=== PATIENT | female | born 1935 | race Caucasian/White ===

== ENCOUNTER 2023-07-31 08:52 | Inpatient (IN) | payer MEDICARE, OTHER ==
[~2023-07-31] VITALS: Ht 165.1 cm; Wt 70.9 kg
[~2023-07-31 08:52] MED LIST: AMOX500C2 PO; BENZ200C53 PO
[2023-07-31] MEDS ORDERED: LIDOCAINE VISCOUS 2% UD 15 ML UDC ONE (09:12)
[2023-07-31] MEDS: LIDOCAINE VISCOUS 2% UD 15 ML UDC MM ONE (09:15)
[2023-07-31 09:58] LABS: BASOPHILS % (AUTO) 1.2 % (0.0-2.0); EOSINOPHILS # (AUTO) 0.1 K/uL (0.0-0.7); MONOCYTES # (AUTO) 0.7 K/uL (0.1-1.30); NEUTROPHILS # (AUTO) 2.6 K/uL (1.8-8.9); WHITE BLOOD COUNT (AUTO) 4.2 K/uL (4.3-11.0)
[2023-07-31 10:02] LABS: EOSINOPHILS % (AUTO) 2.4 % (0.0-6.0); HEMATOCRIT 40 % (33-45); HEMOGLOBIN 13.5 g/dL (11.5-14.8); LYMPHOCYTES # (AUTO) 0.8 K/uL (0.8-4.8); LYMPHOCYTES % (AUTO) 19.7 % (20.0-44.0); MEAN CORPUSCULAR HEMOGLOBIN 28 PG (26.0-33.0); MEAN CORPUSCULAR HGB CONC 34 g/dl (31.0-36.0); MEAN CORPUSCULAR VOLUME 84 fL (82-100); MONOCYTES % (AUTO) 15.7 % (2.0-12.0); PLATELET COUNT (AUTO) 168 K/uL (150-450); RED BLOOD CELL COUNT(AUTO) 4.79 MIL/uL (4.0-5.2); RED CELL DISTRIBUTION WIDTH 16.7 % (11.5-15.0)
[2023-07-31 10:05] LABS: CALCIUM, SERUM 8.8 mg/dL (8.5-10.1); CARBON DIOXIDE 24 mmol/L (21-32); CHLORIDE 105 mmol/L (98-107); CREATININE 0.7 mg/dL (0.6-1.3); GLUCOSE 132 mg/dL (74-106); POTASSIUM 3.6 mmol/L (3.5-5.1); SODIUM SERUM 136 mmol/L (136-145); UREA NITROGEN, BLOOD 17 mg/dL (7-18)
[2023-07-31 10:07] LABS: PARTIAL THROMBOPLASTIN TIME 29.5 SEC (24.3-34.3); PROTHROMBIN TIME 10.3 SECS (9.2-11.1)
[2023-07-31 10:12] LABS: ALANINE AMINOTRANSFERASE 28 U/L (12-78); ALBUMIN 3.2 g/dL (3.4-5.0); ASPARTATE AMINOTRANSFERASE 27 U/L (15-37); BILIRUBIN,DIRECT 0.1 mg/dL (0.0-0.2); BILIRUBIN,TOTAL 0.6 mg/dL (0.2-1.0); TOTAL PROTEIN, SERUM 7.4 g/dL (6.4-8.2)
[2023-07-31 10:32] LABS: ALKALINE PHOSPHATASE 68 U/L (46-116)
[2023-07-31] MEDS ORDERED: CEPHALEXIN MONOHYDRATE 500 MG CAPSULE PO ONE (11:33)
[2023-07-31] MEDS: CEPHALEXIN MONOHYDRATE 500 MG CAPSULE PO ONE (11:39)
[2023-07-31 12:03] LABS: ANISOCYTOSIS 1+; BASOPHILS % (MANUAL) 0 % (0.0-2.0); EOSINOPHILS % (MANUAL) 4 % (0-4); LYMPHOCYTES % (MANUAL) 17 % (16-48); MONOCYTES % (MANUAL) 14 % (0-11.0); NEUTROPHILS % (MANUAL) 65 (42-76); PLATELET ESTIMATE ADEQUATE
[2023-07-31] MEDS ORDERED: CLONIDINE HCL 0.1 MG TABLET ONE (12:17)
[2023-07-31] MEDS: CLONIDINE HCL 0.1 MG TABLET PO ONE (12:19)
[2023-07-31] MEDS ORDERED: ONDANSETRON HCL/PF 4 MG/2 ML VIAL IVP PRN (15:00)
[2023-07-31] MEDS ORDERED: MAGNESIUM HYDROXIDE 30 ML UDC PO PRN (15:00)
[2023-07-31] MEDS ORDERED: MAG HYDROX/AL HYDROX/SIMETH 30 ML UDC PO PRN (15:00)
[2023-07-31] MEDS ORDERED: Z GUARD REMEDY 4 OZ OINT TP PRN (15:00)
[2023-07-31 16:09] VITALS: BP 152/94; TEMP 98.1; O2SAT 95
[2023-07-31] MEDS: IV NS 0.9% 1,000 ML IV PRN (16:37)
[2023-07-31] MEDS ORDERED: ATOR20TA PO (17:04)
[2023-07-31] MEDS ORDERED: FAMO-108 PO (17:04)
[2023-07-31] MEDS ORDERED: BRIM5DRO2 EACHEYE (17:04)
[2023-07-31] MEDS ORDERED: LOSA100T31 PO (17:04)
[2023-07-31 20:00] VITALS: BP 142/86; TEMP 97.7; O2SAT 97
[2023-07-31] MEDS: CEPHALEXIN MONOHYDRATE 500 MG CAPSULE PO SCH (21:06)
[2023-08-01] VITALS: BP 164/82; TEMP 98.4; O2SAT 96
[2023-08-01 00:17] VITALS: BP 164/82; TEMP 98.4; O2SAT 96
[2023-08-01 04:00] VITALS: BP 159/93; TEMP 98.4; O2SAT 96
[2023-08-01 07:08] LABS: CALCIUM, SERUM 8.1 mg/dL (8.5-10.1); CREATININE 0.6 mg/dL (0.6-1.3); MAGNESIUM 2.1 mg/dL (1.8-2.4); PHOSPHORUS 3.1 mg/dL (2.5-4.9); POTASSIUM 3.9 mmol/L (3.5-5.1)
[2023-08-01] MEDS: ACETAMINOPHEN 325 MG TABLET PO PRN (07:37)
[2023-08-01 07:52] LABS: BASOPHILS % (AUTO) 0.9 % (0.0-2.0); EOSINOPHILS # (AUTO) 0.1 K/uL (0.0-0.7); EOSINOPHILS % (AUTO) 1.5 % (0.0-6.0); HEMATOCRIT 39 % (33-45); HEMOGLOBIN 12.9 g/dL (11.5-14.8); LYMPHOCYTES # (AUTO) 1.1 K/uL (0.8-4.8); LYMPHOCYTES % (AUTO) 21.5 % (20.0-44.0); MEAN CORPUSCULAR HEMOGLOBIN 29 PG (26.0-33.0); MEAN CORPUSCULAR HGB CONC 33 g/dl (31.0-36.0); MEAN CORPUSCULAR VOLUME 86 fL (82-100); MONOCYTES # (AUTO) 0.8 K/uL (0.1-1.30); MONOCYTES % (AUTO) 15.3 % (2.0-12.0); NEUTROPHILS # (AUTO) 3.1 K/uL (1.8-8.9); NEUTROPHILS % (AUTO) 60.8 % (43.0-81.0); PLATELET COUNT (AUTO) 162 K/uL (150-450); RED BLOOD CELL COUNT(AUTO) 4.53 MIL/uL (4.0-5.2); RED CELL DISTRIBUTION WIDTH 16.9 % (11.5-15.0); WHITE BLOOD COUNT (AUTO) 5.1 K/uL (4.3-11.0)
[2023-08-01 08:00] VITALS: BP 150/84; TEMP 98.4; O2SAT 97
== END 2023-08-01 15:15 | disposition home or self-care (01) | DRG 281 ==
LOC: ER 08:59 → MED 14:11 → TELE 20:59
PROVIDERS: ADMIT Nurse Practitioner Acute Care; ATTEND Nurse Practitioner Acute Care
PROC: 2Y41X5Z Packing of Nasal Region using Packing Material (ICD-10-PCS; principal; 2023-07-31)
DX: I16.0 Hypertensive urgency (principal); D68.69 Other thrombophilia; I21.A1 Myocardial infarction type 2; I50.32 Chronic diastolic (congestive) heart failure; R04.0 Epistaxis; E11.9 Type 2 diabetes mellitus without complications; E66.01 Morbid (severe) obesity due to excess calories; E78.5 Hyperlipidemia, unspecified; I11.0 Hypertensive heart disease with heart failure; K08.89 Other specified disorders of teeth and supporting structures; R51.9 Headache, unspecified; Z91.199 Patient's noncompliance with other medical treatment and regimen due to unspecified reason; Z68.26 Body mass index [BMI] 26.0-26.9, adult
CPT/HCPCS: 36415; 70450-TC; 71045-TC; 80048-TC; 80061-TC; 80076-TC; 83735-TC; 84100-TC; 84484-TC; 85025-TC; 85730-TC; 93307-TC; A4223; G0378; J7030

== ENCOUNTER 2023-11-07 00:23 | Emergency (ER) | payer MEDICARE, OTHER ==
[~2023-11-07] VITALS: Ht 165.1 cm; Wt 70.3 kg
[~2023-11-07 00:23] MED LIST changes: +ATOR20TA PO; +BRIM5DRO2 EACHEYE; +FAMO-108 PO; +LOSA100T31 PO
[2023-11-07] MEDS ORDERED: SUMATRIPTAN SUCCINATE 6 MG/0.5 ML VIAL SQ ONE (00:46)
[2023-11-07] MEDS ORDERED: MECLIZINE HCL 25 MG TABLET ONE (00:46)
[2023-11-07] MEDS ORDERED: diphenhydrAMINE HCL 50 MG/ML VIAL ONE (00:46)
[2023-11-07] MEDS ORDERED: METOCLOPRAMIDE HCL 10 MG/2 ML VIAL ONE (00:47)
[2023-11-07 00:48] LABS: BASOPHILS % (AUTO) 0.9 % (0.0-2.0); EOSINOPHILS # (AUTO) 0.2 K/uL (0.0-0.7); EOSINOPHILS % (AUTO) 3.5 % (0.0-6.0); HEMATOCRIT 38 % (33-45); HEMOGLOBIN 12.5 g/dL (11.5-14.8); LYMPHOCYTES # (AUTO) 0.9 K/uL (0.8-4.8); LYMPHOCYTES % (AUTO) 18.5 % (20.0-44.0); MEAN CORPUSCULAR HEMOGLOBIN 28 PG (26.0-33.0); MEAN CORPUSCULAR HGB CONC 33 g/dl (31.0-36.0); MEAN CORPUSCULAR VOLUME 84 fL (82-100); MONOCYTES # (AUTO) 0.8 K/uL (0.1-1.30); MONOCYTES % (AUTO) 16.9 % (2.0-12.0); NEUTROPHILS % (AUTO) 60.2 % (43.0-81.0); PLATELET COUNT (AUTO) 154 K/uL (150-450); RED BLOOD CELL COUNT(AUTO) 4.47 MIL/uL (4.0-5.2); RED CELL DISTRIBUTION WIDTH 16.9 % (11.5-15.0); WHITE BLOOD COUNT (AUTO) 4.9 K/uL (4.3-11.0)
[2023-11-07] MEDS: IV NS 0.9% 1,000 ML BAG IV ONE (00:53)
[2023-11-07] MEDS: diphenhydrAMINE HCL 50 MG/ML VIAL IV ONE (00:55)
[2023-11-07] MEDS ORDERED: MECLIZINE HCL 12.5 MG TABLET PO ONE (01:00)
[2023-11-07 01:06] LABS: CALCIUM, SERUM 8.7 mg/dL (8.5-10.1); CARBON DIOXIDE 24 mmol/L (21-32); CHLORIDE 102 mmol/L (98-107); CREATININE 0.9 mg/dL (0.6-1.3); GLUCOSE 166 mg/dL (74-106); POTASSIUM 3.5 mmol/L (3.5-5.1); SODIUM SERUM 135 mmol/L (136-145); UREA NITROGEN, BLOOD 20 mg/dL (7-18)
[2023-11-07] MEDS: METOCLOPRAMIDE HCL 10 MG/2 ML VIAL IV ONE (01:09)
[2023-11-07] MEDS: SUMATRIPTAN SUCCINATE 6 MG/0.5 ML VIAL SQ ONE (01:10)
[2023-11-07] MEDS: LABETALOL HCL IV 100MG VIAL IV ONE (01:11)
[2023-11-07] MEDS ORDERED: LABETALOL HCL IV 100MG VIAL ONE (01:12)
[2023-11-07] MEDS ORDERED: SUMA50TA PO (01:42)
[2023-11-07] MEDS ORDERED: MECL-159 PO (01:42)
[2023-11-07 02:30] VITALS: BP 134/85; TEMP 98; O2SAT 99
== END 2023-11-07 02:44 | disposition home or self-care (01) ==
LOC: ER 00:24
DX: R42 Dizziness and giddiness (principal); R51.9 Headache, unspecified; I10 Essential (primary) hypertension; E11.9 Type 2 diabetes mellitus without complications
CPT/HCPCS: 99285; 96374; 70450; 96375; 71045; 96361; 93005; 85025; 80048; 36415; 84484; 96372; J8597; J1200; J3030; J3490; J2765; J7030

== ENCOUNTER 2023-12-17 13:00 | Emergency (ER) | payer MEDICARE, OTHER ==
[~2023-12-17] VITALS: Ht 152.4 cm; Wt 68.0 kg
[~2023-12-17 13:00] MED LIST changes: +MECL-159 PO; +SUMA50TA PO
[2023-12-17] MEDS ORDERED: ACETAMINOPHEN ES 500 MG TABLET ONE (13:30)
[2023-12-17] MEDS ORDERED: METOCLOPRAMIDE HCL 10 MG/2 ML VIAL ONE (13:30)
[2023-12-17] MEDS ORDERED: diphenhydrAMINE HCL 50 MG/ML VIAL ONE (13:30)
[2023-12-17] MEDS: ACETAMINOPHEN ES 500 MG TABLET PO ONE (13:34)
[2023-12-17] MEDS: IV NS 0.9% 1,000 ML BAG IV ONE (13:35)
[2023-12-17] MEDS: diphenhydrAMINE HCL 50 MG/ML VIAL IV ONE (13:35)
[2023-12-17] MEDS: METOCLOPRAMIDE HCL 10 MG/2 ML VIAL IV ONE (13:38)
[2023-12-17 14:08] LABS: BASOPHILS % (AUTO) 1.1 % (0.0-2.0); EOSINOPHILS # (AUTO) 0.2 K/uL (0.0-0.7); EOSINOPHILS % (AUTO) 4.4 % (0.0-6.0); HEMATOCRIT 38 % (33-45); HEMOGLOBIN 12.7 g/dL (11.5-14.8); LYMPHOCYTES % (AUTO) 24.7 % (20.0-44.0); MEAN CORPUSCULAR HEMOGLOBIN 28 PG (26.0-33.0); MEAN CORPUSCULAR HGB CONC 33 g/dl (31.0-36.0); MEAN CORPUSCULAR VOLUME 85 fL (82-100); MONOCYTES # (AUTO) 0.8 K/uL (0.1-1.30); MONOCYTES % (AUTO) 18.3 % (2.0-12.0); NEUTROPHILS # (AUTO) 2.2 K/uL (1.8-8.9); NEUTROPHILS % (AUTO) 51.5 % (43.0-81.0); PLATELET COUNT (AUTO) 146 K/uL (150-450); RED BLOOD CELL COUNT(AUTO) 4.53 MIL/uL (4.0-5.2); RED CELL DISTRIBUTION WIDTH 17.3 % (11.5-15.0); WHITE BLOOD COUNT (AUTO) 4.2 K/uL (4.3-11.0)
[2023-12-17 14:19] LABS: CALCIUM, SERUM 8.9 mg/dL (8.5-10.1); CARBON DIOXIDE 25 mmol/L (21-32); CHLORIDE 105 mmol/L (98-107); CREATININE 0.7 mg/dL (0.6-1.3); GLUCOSE 121 mg/dL (74-106); POTASSIUM 3.7 mmol/L (3.5-5.1); SODIUM SERUM 140 mmol/L (136-145); UREA NITROGEN, BLOOD 18 mg/dL (7-18)
[2023-12-17] MEDS ORDERED: NAPR-431 PO (15:45)
[2023-12-17 16:29] VITALS: BP 150/72; TEMP 98.7; O2SAT 100
== END 2023-12-17 16:30 | disposition home or self-care (01) ==
LOC: ER 13:04
DX: R51.9 Headache, unspecified (principal); E11.9 Type 2 diabetes mellitus without complications; E78.5 Hyperlipidemia, unspecified; I10 Essential (primary) hypertension; Z79.899 Other long term (current) drug therapy
CPT/HCPCS: 99285; 96374; 70450; 96361; 96375; 93005; 85025; 80048; 36415; J1200; J2765; J7030

== ENCOUNTER 2024-08-07 20:53 | Inpatient (IN) | payer MEDICARE, OTHER ==
[~2024-08-07] VITALS: Ht 162.6 cm; Wt 74.0 kg
[~2024-08-07 20:53] MED LIST changes: +NAPR-431 PO
[2024-08-07 21:15] LABS: EOSINOPHILS # (AUTO) 0.2 K/uL (0.0-0.7); EOSINOPHILS % (AUTO) 3.7 % (0.0-6.0); HEMATOCRIT 40 % (33-45); HEMOGLOBIN 12.8 g/dL (11.5-14.8); LYMPHOCYTES % (AUTO) 19.8 % (20.0-44.0); MEAN CORPUSCULAR HEMOGLOBIN 28 PG (26.0-33.0); MEAN CORPUSCULAR HGB CONC 32 g/dl (31.0-36.0); MEAN CORPUSCULAR VOLUME 85 fL (82-100); MONOCYTES # (AUTO) 0.8 K/uL (0.1-1.30); NEUTROPHILS % (AUTO) 59.5 % (43.0-81.0); PLATELET COUNT (AUTO) 160 K/uL (150-450); RED BLOOD CELL COUNT(AUTO) 4.67 MIL/uL (4.0-5.2); RED CELL DISTRIBUTION WIDTH 17.1 % (11.5-15.0); WHITE BLOOD COUNT (AUTO) 5.1 K/uL (4.3-11.0)
[2024-08-07] MEDS ORDERED: ONDANSETRON HCL/PF 4 MG/2 ML VIAL ONE (21:19)
[2024-08-07 21:22] LABS: CALCIUM, SERUM 8.8 mg/dL (8.5-10.1); CARBON DIOXIDE 24 mmol/L (21-32); CHLORIDE 109 mmol/L (98-107); CREATININE 0.9 mg/dL (0.6-1.3); GLUCOSE 136 mg/dL (74-106); POTASSIUM 3.7 mmol/L (3.5-5.1); SODIUM SERUM 141 mmol/L (136-145); UREA NITROGEN, BLOOD 22 mg/dL (7-18)
[2024-08-07 21:28] LABS: ALANINE AMINOTRANSFERASE 22 U/L (12-78); ALBUMIN 3.3 g/dL (3.4-5.0); ALKALINE PHOSPHATASE 75 U/L (46-116); ASPARTATE AMINOTRANSFERASE 20 U/L (15-37); BILIRUBIN,DIRECT 0.1 mg/dL (0.0-0.2); BILIRUBIN,TOTAL 0.4 mg/dL (0.2-1.0); TOTAL PROTEIN, SERUM 7.3 g/dL (6.4-8.2)
[2024-08-07] MEDS: IV NS 0.9% 1,000 ML BAG IV ONE (21:33)
[2024-08-07] MEDS: ONDANSETRON HCL/PF 4 MG/2 ML VIAL IVP ONE (21:34)
[2024-08-07 21:44] LABS: BASOPHILS % (MANUAL) 0 % (0.0-2.0); EOSINOPHILS % (MANUAL) 4 % (0-4); LYMPHOCYTES % (MANUAL) 22 % (16-48); MONOCYTES % (MANUAL) 11 % (0-11.0); NEUTROPHILS % (MANUAL) 63 (42-76); PLATELET ESTIMATE ADEQUATE
[2024-08-07] MEDS: FUROSEMIDE 40 MG/4 ML VIAL IV ONE (21:48)
[2024-08-07 23:03] LABS: COLOR,URINE STRAW (YELLOW)
[2024-08-07 23:04] LABS: APPEARANCE,URINE CLEAR (CLEAR); BILIRUBIN,URINE NEGATIVE (NEGATIVE); BLOOD, URINE NEGATIVE Ery/uL (NEGATIVE); KETONES,URINE NEGATIVE (NEGATIVE); LEUKOCYTE ESTERASE ,URINE NEGATIVE (NEGATIVE); NITRITE, URINE NEGATIVE (NEGATIVE); PH,URINE 6.5 (5.0-8.0); PROTEIN,URINE NEGATIVE (NEGATIVE); UGLUCOSE NEGATIVE (NEGATIVE); UROBILINOGEN,URINE 0.2 EU/dL (0.2)
[2024-08-07] MEDS ORDERED: TRAM50TA2 PO (23:18)
[2024-08-07] MEDS ORDERED: BRIM5DRO11 EACHEYE (23:18)
[2024-08-07] MEDS ORDERED: TRAV5DRO11 EACHEYE (23:18)
[2024-08-07] MEDS ORDERED: LORA10TA7 PO (23:18)
[2024-08-07] MEDS ORDERED: METO25TA6 PO (23:18)
[2024-08-07] MEDS ORDERED: KETOROLAC TROMETHAMINE 15 MG/ML VIAL ONE (23:25)
[2024-08-07] MEDS ORDERED: ACETAMINOPHEN 325 MG TABLET ONE (23:26)
[2024-08-07] MEDS ORDERED: MECLIZINE HCL 25 MG TABLET ONE (23:26)
[2024-08-07] MEDS: KETOROLAC TROMETHAMINE 15 MG/ML VIAL IV ONE (23:31)
[2024-08-07] MEDS: MECLIZINE HCL 25 MG TABLET PO ONE (23:32)
[2024-08-07] MEDS: ACETAMINOPHEN 325 MG TABLET PO ONE (23:32)
[2024-08-08] MEDS ORDERED: ONDANSETRON HCL/PF 4 MG/2 ML VIAL IVP PRN
[2024-08-08] MEDS ORDERED: MECLIZINE HCL 25 MG TABLET PO SCH
[2024-08-08] MEDS ORDERED: Z GUARD REMEDY 4 OZ OINT TP PRN
[2024-08-08] MEDS ORDERED: MAG HYDROX/AL HYDROX/SIMETH 30 ML UDC PO PRN
[2024-08-08] MEDS ORDERED: MAGNESIUM HYDROXIDE 30 ML UDC PO PRN
[2024-08-08 00:11] VITALS: BP 151/84; TEMP 97.9; O2SAT 95
[2024-08-08 04:00] VITALS: BP 148/83; TEMP 97.3; O2SAT 96
[2024-08-08 06:53] LABS: BASOPHILS % (AUTO) 0.9 % (0.0-2.0); EOSINOPHILS # (AUTO) 0.2 K/uL (0.0-0.7); EOSINOPHILS % (AUTO) 5.6 % (0.0-6.0); HEMATOCRIT 38 % (33-45); HEMOGLOBIN 12.4 g/dL (11.5-14.8); LYMPHOCYTES % (AUTO) 26.4 % (20.0-44.0); MEAN CORPUSCULAR HEMOGLOBIN 28 PG (26.0-33.0); MEAN CORPUSCULAR HGB CONC 33 g/dl (31.0-36.0); MEAN CORPUSCULAR VOLUME 85 fL (82-100); MONOCYTES # (AUTO) 0.7 K/uL (0.1-1.30); MONOCYTES % (AUTO) 17.5 % (2.0-12.0); NEUTROPHILS # (AUTO) 1.9 K/uL (1.8-8.9); NEUTROPHILS % (AUTO) 49.6 % (43.0-81.0); PLATELET COUNT (AUTO) 156 K/uL (150-450); RED BLOOD CELL COUNT(AUTO) 4.47 MIL/uL (4.0-5.2); RED CELL DISTRIBUTION WIDTH 16.6 % (11.5-15.0); WHITE BLOOD COUNT (AUTO) 3.9 K/uL (4.3-11.0)
[2024-08-08 07:10] LABS: CALCIUM, SERUM 8.6 mg/dL (8.5-10.1); CREATININE 0.9 mg/dL (0.6-1.3); MAGNESIUM 2.3 mg/dL (1.8-2.4); PHOSPHORUS 4.4 mg/dL (2.5-4.9); POTASSIUM 3.8 mmol/L (3.5-5.1)
[2024-08-08 07:26] LABS: THYROID STIMULATING HORMONE 1.9 uIU/mL (0.358-3.74)
[2024-08-08 07:30] VITALS: BP 158/96; TEMP 98.1; O2SAT 94
[2024-08-08] MEDS: PANTOPRAZOLE 40 MG TABLET.DR PO SCH (08:26)
[2024-08-08] MEDS: FUROSEMIDE 40 MG/4 ML VIAL IV SCH (08:59)
[2024-08-08] MEDS: LORATADINE 10 MG TABLET PO SCH (09:00)
[2024-08-08] MEDS: METOPROLOL TARTRATE 25 MG TABLET PO SCH (09:00)
[2024-08-08] MEDS: LOSARTAN POTASSIUM 50 MG TABLET PO SCH (09:00)
[2024-08-08] MEDS: BRIMONIDINE TARTRATE OPHT SOLN 5 ML BOTTLE EACHEYE SCH (09:01)
[2024-08-08] MEDS: GABAPENTIN 100 MG CAPSULE PO SCH (13:08)
[2024-08-08 14:23] LABS: LYMPHOCYTES % (MANUAL) 25 % (16-48); MONOCYTES % (MANUAL) 18 % (0-11.0); NEUTROPHILS % (MANUAL) 50 (42-76)
[2024-08-08 14:24] LABS: BASOPHILS % (MANUAL) 1 % (0.0-2.0); EOSINOPHILS % (MANUAL) 6 % (0-4); PLATELET ESTIMATE ADEQUATE
[2024-08-08 16:00] VITALS: BP 135/80; TEMP 97.9; O2SAT 96
[2024-08-08 20:00] VITALS: BP 122/66; TEMP 97.9; O2SAT 95
[2024-08-08] MEDS: LATANOPROST EYE DROP 0.005% 2.5 ML BOTTLE OP SCH (20:48)
[2024-08-08] MEDS: ACETAMINOPHEN 325 MG TABLET PO PRN (22:23)
[2024-08-09] VITALS: BP 129/67; TEMP 98.2; O2SAT 93
[2024-08-09 07:17] LABS: BASOPHILS % (AUTO) 0.5 % (0.0-2.0); EOSINOPHILS # (AUTO) 0.2 K/uL (0.0-0.7); EOSINOPHILS % (AUTO) 4.3 % (0.0-6.0); HEMATOCRIT 38 % (33-45); HEMOGLOBIN 12.4 g/dL (11.5-14.8); LYMPHOCYTES % (AUTO) 19.7 % (20.0-44.0); MEAN CORPUSCULAR HEMOGLOBIN 28 PG (26.0-33.0); MEAN CORPUSCULAR HGB CONC 32 g/dl (31.0-36.0); MEAN CORPUSCULAR VOLUME 85 fL (82-100); MONOCYTES # (AUTO) 0.7 K/uL (0.1-1.30); MONOCYTES % (AUTO) 13.2 % (2.0-12.0); NEUTROPHILS # (AUTO) 3.1 K/uL (1.8-8.9); NEUTROPHILS % (AUTO) 62.3 % (43.0-81.0); PLATELET COUNT (AUTO) 155 K/uL (150-450); RED CELL DISTRIBUTION WIDTH 17.2 % (11.5-15.0)
[2024-08-09 07:41] LABS: CALCIUM, SERUM 8.6 mg/dL (8.5-10.1); CREATININE 0.9 mg/dL (0.6-1.3); MAGNESIUM 2.1 mg/dL (1.8-2.4); PHOSPHORUS 4.4 mg/dL (2.5-4.9)
[2024-08-09 08:00] VITALS: BP 170/91; TEMP 98.2; O2SAT 96
[2024-08-09] MEDS: ATORVASTATIN 10 MG TABLET PO SCH (08:07)
[2024-08-09 16:00] VITALS: BP 115/65; TEMP 97.9; O2SAT 96
[2024-08-09] MEDS: METOPROLOL TARTRATE 25 MG TABLET PO SCH (16:26)
[2024-08-09 20:00] VITALS: BP 136/81; TEMP 98.8; O2SAT 95
[2024-08-10 07:27] LABS: BASOPHILS % (AUTO) 0.5 % (0.0-2.0); EOSINOPHILS # (AUTO) 0.1 K/uL (0.0-0.7); EOSINOPHILS % (AUTO) 1.9 % (0.0-6.0); HEMATOCRIT 42 % (33-45); HEMOGLOBIN 13.4 g/dL (11.5-14.8); LYMPHOCYTES # (AUTO) 0.8 K/uL (0.8-4.8); MEAN CORPUSCULAR HEMOGLOBIN 28 PG (26.0-33.0); MEAN CORPUSCULAR HGB CONC 32 g/dl (31.0-36.0); MEAN CORPUSCULAR VOLUME 85 fL (82-100); MONOCYTES # (AUTO) 0.5 K/uL (0.1-1.30); MONOCYTES % (AUTO) 9.9 % (2.0-12.0); NEUTROPHILS # (AUTO) 4.1 K/uL (1.8-8.9); NEUTROPHILS % (AUTO) 73.7 % (43.0-81.0); PLATELET COUNT (AUTO) 163 K/uL (150-450); RED BLOOD CELL COUNT(AUTO) 4.88 MIL/uL (4.0-5.2); WHITE BLOOD COUNT (AUTO) 5.5 K/uL (4.3-11.0)
[2024-08-10 07:45] LABS: CALCIUM, SERUM 8.5 mg/dL (8.5-10.1); CREATININE 0.7 mg/dL (0.6-1.3); MAGNESIUM 2.2 mg/dL (1.8-2.4); PHOSPHORUS 2.6 mg/dL (2.5-4.9); POTASSIUM 3.9 mmol/L (3.5-5.1)
[2024-08-10 08:00] VITALS: BP 158/84; TEMP 98.2; O2SAT 94
[2024-08-10] MEDS: FUROSEMIDE 40 MG TABLET PO SCH (08:22)
[2024-08-10 16:00] VITALS: BP 147/80; TEMP 97.5; O2SAT 98
[2024-08-10 20:00] VITALS: BP 152/85; TEMP 98.4; O2SAT 96
[2024-08-10 20:40] VITALS: BP 152/85; TEMP 98.4; O2SAT 96
[2024-08-11 07:41] LABS: CALCIUM, SERUM 8.3 mg/dL (8.5-10.1); CREATININE 0.7 mg/dL (0.6-1.3); MAGNESIUM 2.1 mg/dL (1.8-2.4); PHOSPHORUS 2.4 mg/dL (2.5-4.9); POTASSIUM 3.6 mmol/L (3.5-5.1)
[2024-08-11 07:51] LABS: BASOPHILS % (AUTO) 0.8 % (0.0-2.0); EOSINOPHILS # (AUTO) 0.2 K/uL (0.0-0.7); EOSINOPHILS % (AUTO) 3.7 % (0.0-6.0); HEMATOCRIT 41 % (33-45); HEMOGLOBIN 13.5 g/dL (11.5-14.8); LYMPHOCYTES # (AUTO) 0.9 K/uL (0.8-4.8); LYMPHOCYTES % (AUTO) 19.3 % (20.0-44.0); MEAN CORPUSCULAR HEMOGLOBIN 28 PG (26.0-33.0); MEAN CORPUSCULAR HGB CONC 33 g/dl (31.0-36.0); MEAN CORPUSCULAR VOLUME 85 fL (82-100); MONOCYTES # (AUTO) 0.7 K/uL (0.1-1.30); MONOCYTES % (AUTO) 15.1 % (2.0-12.0); NEUTROPHILS % (AUTO) 61.1 % (43.0-81.0); PLATELET COUNT (AUTO) 170 K/uL (150-450); RED BLOOD CELL COUNT(AUTO) 4.85 MIL/uL (4.0-5.2); RED CELL DISTRIBUTION WIDTH 16.5 % (11.5-15.0); WHITE BLOOD COUNT (AUTO) 4.9 K/uL (4.3-11.0)
[2024-08-11 08:00] VITALS: BP 166/90; TEMP 97.9; O2SAT 97
[2024-08-11 14:18] LABS: EOSINOPHILS % (MANUAL) 3 % (0-4); LYMPHOCYTES % (MANUAL) 21 % (16-48); MONOCYTES % (MANUAL) 13 % (0-11.0); NEUTROPHILS % (MANUAL) 63 (42-76); PLATELET ESTIMATE ADEQUATE
[2024-08-11] MEDS: K PHOS NEUTRAL 250 MG TABLET PO ONE (15:40)
[2024-08-11 16:00] VITALS: BP 144/82; TEMP 97.6; O2SAT 96
[2024-08-11 20:00] VITALS: BP 120/71; TEMP 98.1; O2SAT 95
[2024-08-12 01:10] LABS: CORTISOL SERUM 3.2 ug/dL (6.2-19.4); PROLACTIN 33.1 ng/mL (3.6-32.0)
[2024-08-12 07:12] LABS: BASOPHILS # (AUTO) 0.1 K/uL (0.0-0.2); BASOPHILS % (AUTO) 1.1 % (0.0-2.0); EOSINOPHILS # (AUTO) 0.2 K/uL (0.0-0.7); EOSINOPHILS % (AUTO) 4.7 % (0.0-6.0); HEMATOCRIT 41 % (33-45); HEMOGLOBIN 13.4 g/dL (11.5-14.8); LYMPHOCYTES % (AUTO) 20.7 % (20.0-44.0); MEAN CORPUSCULAR HEMOGLOBIN 28 PG (26.0-33.0); MEAN CORPUSCULAR HGB CONC 33 g/dl (31.0-36.0); MEAN CORPUSCULAR VOLUME 85 fL (82-100); MONOCYTES # (AUTO) 0.7 K/uL (0.1-1.30); NEUTROPHILS # (AUTO) 2.9 K/uL (1.8-8.9); NEUTROPHILS % (AUTO) 58.5 % (43.0-81.0); PLATELET COUNT (AUTO) 159 K/uL (150-450); RED BLOOD CELL COUNT(AUTO) 4.85 MIL/uL (4.0-5.2); RED CELL DISTRIBUTION WIDTH 16.4 % (11.5-15.0)
[2024-08-12 08:00] VITALS: BP 161/86; TEMP 98.1; O2SAT 98
[2024-08-12 09:09] LABS: CALCIUM, SERUM 8.6 mg/dL (8.5-10.1); CREATININE 0.7 mg/dL (0.6-1.3); PHOSPHORUS 3.5 mg/dL (2.5-4.9); POTASSIUM 3.4 mmol/L (3.5-5.1)
[2024-08-12 10:09] LABS: BASOPHILS % (MANUAL) 0 % (0.0-2.0); EOSINOPHILS % (MANUAL) 4 % (0-4); LYMPHOCYTES % (MANUAL) 22 % (16-48); MONOCYTES % (MANUAL) 12 % (0-11.0); NEUTROPHILS % (MANUAL) 62 (42-76); PLATELET ESTIMATE ADEQUATE
[2024-08-12 13:07] LABS: ACTH, PLASMA 6.8 pg/mL (7.2-63.3)
[2024-08-12 16:00] VITALS: BP 139/87; TEMP 98.6; O2SAT 95
[2024-08-12] MEDS: POTASSIUM CHLORIDE 20 MEQ TAB.PRT.SR PO SCH (16:16)
[2024-08-12 16:17] VITALS: BP 139/87
[2024-08-12] MEDS ORDERED: FURO-144 PO (16:23)
[2024-08-12] MEDS ORDERED: MECL-159 PO (16:23)
[2024-08-12] MEDS ORDERED: GADOTERATE MEGLUMINE 10 MMOL/20 ML VIAL IV ONE (18:16)
== END 2024-08-12 18:17 | disposition home health service (06) | DRG 291 ==
LOC: ER 21:00 → TELE 23:03 → MED 08-09 12:53
DX: I11.0 Hypertensive heart disease with heart failure (principal); I50.33 Acute on chronic diastolic (congestive) heart failure; E78.5 Hyperlipidemia, unspecified; D72.821 Monocytosis (symptomatic); E11.40 Type 2 diabetes mellitus with diabetic neuropathy, unspecified; Z88.0 Allergy status to penicillin; R42 Dizziness and giddiness; D33.2 Benign neoplasm of brain, unspecified; Z79.899 Other long term (current) drug therapy; I89.0 Lymphedema, not elsewhere classified; M17.0 Bilateral primary osteoarthritis of knee
CPT/HCPCS: 36415; 70450-TC; 70553-TC; 71045-TC; 80048-TC; 80061-TC; 80076-TC; 82024; 82533; 82607-TC; 82962-TC; 83735-TC; 83880; 84100-TC; 84146; 84305; 84425; 84443-TC; 84484-TC; 85025-TC; 93307-TC; 93970-TC; 97110-TC; 97116-TC; 97530-TC; A9575; G0378; J1885; J1938; J2405; J3490; J7030; J8597

== ENCOUNTER 2024-09-09 19:21 | Emergency (ER) | payer MEDICARE, OTHER ==
[~2024-09-09] VITALS: Ht 162.6 cm; Wt 73.9 kg
[~2024-09-09 19:21] MED LIST changes: -AMOX500C2 PO; -BENZ200C53 PO; +BRIM5DRO11 EACHEYE; +FURO-144 PO; +LORA10TA7 PO; +METO25TA6 PO; -NAPR-431 PO; +TRAM50TA2 PO; +TRAV5DRO11 EACHEYE
[2024-09-09 19:58] VITALS: TEMP 98.2
[2024-09-09 20:29] LABS: PLATELET COUNT (AUTO) 168 K/uL (150-450); RED BLOOD CELL COUNT(AUTO) 4.44 MIL/uL (4.0-5.2); RED CELL DISTRIBUTION WIDTH 16.7 % (11.5-15.0); WHITE BLOOD COUNT (AUTO) 4.9 K/uL (4.3-11.0)
[2024-09-09 20:37] LABS: CALCIUM, SERUM 8.4 mg/dL (8.5-10.1); CREATININE 0.7 mg/dL (0.6-1.3); SODIUM SERUM 140.0 mmol/L (136-145); UREA NITROGEN, BLOOD 18.0 mg/dL (7-18)
[2024-09-09 20:43] LABS: ASPARTATE AMINOTRANSFERASE 24.0 U/L (15-37); TOTAL PROTEIN, SERUM 7.3 g/dL (6.4-8.2)
[2024-09-09 21:20] LABS: EOSINOPHILS % (MANUAL) 7 % (0-4); LYMPHOCYTES % (MANUAL) 25 % (16-48); MONOCYTES % (MANUAL) 13 % (0-11.0); NEUTROPHILS % (MANUAL) 54 (42-76)
[2024-09-09 21:21] LABS: PLATELET ESTIMATE ADEQUATE
[2024-09-09] MEDS: FUROSEMIDE 40 MG/4 ML VIAL IV ONE (21:28)
[2024-09-09 21:29] LABS: BASOPHILS % (MANUAL) 1 % (0.0-2.0)
[2024-09-09] MEDS ORDERED: FURO40TA5 PO (21:36)
[2024-09-09] MEDS ORDERED: POTA10CA43 PO (21:36)
[2024-09-09 22:29] VITALS: BP 165/95; O2SAT 95
== END 2024-09-09 22:27 | disposition home or self-care (01) ==
LOC: ER 19:25
DX: I11.0 Hypertensive heart disease with heart failure (principal); E11.9 Type 2 diabetes mellitus without complications; I50.9 Heart failure, unspecified; E78.5 Hyperlipidemia, unspecified; Z79.899 Other long term (current) drug therapy; Z88.0 Allergy status to penicillin
CPT/HCPCS: 99285; 96374; 71045; 93005 ×2; 85027; 80048; 83690; 80076; 85007; 36415; 84484 ×2; 83880; J1938